=== PATIENT | male | born 1965 | race Caucasian/White ===

== ENCOUNTER → 2023-12-27 | Day surgery (SDC) | payer BC ==
[~2023-12-27] MED LIST: LIDOCAINE 1% INJ 10MG/ML (20 ML MDV) ONE; PROPOFOL 10 MG/ML 20 ML VIAL IV ONE
[2023-12-27 08:48] VITALS: TEMP 97.4
[2023-12-27] MEDS: IV FLUID CONTINUATION 1,000 ML IV ONE (08:54)
[2023-12-27] MEDS: LIDOCAINE 1% (10MG/ML) FOR IV START INTRADERMA PRN (09:02)
[2023-12-27] MEDS: LACTATED RINGERS 1,000 ML IV SCH (09:03)
--- NOTE | 2023-12-27 09:35 | P.GSHP ---
History of Present Illness H&P Date: 12/27/23 Chief Complaint: Colon cancer screening 58 male here for colonoscopy. Last colonoscopy 10 years ago. That was normal. No bowel complaints. No family history of colon cancer. Past Medical History Past Medical History: GERD/Reflux, Hyperlipidemia, Hypertension Additional Past Medical History / Comment(s): mild arthritis, History of Any Multi-Drug Resistant Organisms: None Reported Past Surgical History: Orthopedic Surgery Additional Past Surgical History / Comment(s): colonoscopy, meniscus surgery Past Anesthesia/Blood Transfusion Reactions: No Reported Reaction Smoking Status: Never smoker - Past Family History Mother Family Medical History: Congestive Heart Failure (CHF) Father Additional Family Medical History / Comment(s): valve issues Medications and Allergies Home Medications Medication Instructions Recorded Confirmed Type Ibuprofen [Advil] 600 mg PO DIRECTED PRN 12/23/23 12/27/23 History Pravastatin Sodium [Pravachol] 80 mg PO DAILY 12/23/23 12/27/23 History Zolpidem Tartrate [Ambien] 10 mg PO HS 12/23/23 12/27/23 History lisinopriL [Lisinopril] 10 mg PO DAILY 12/23/23 12/27/23 History Allergies Allergy/AdvReac Type Severity Reaction Status Date / Time No Known Allergies Allergy Verified 12/27/23 08:49 Surgical - Exam Vital Signs Temp Pulse Resp BP Pulse Ox 97.4 F L 91 16 136/96 96 12/27/23 08:47 12/27/23 08:47 12/27/23 08:47 12/27/23 08:47 12/27/23 08:47 Physical exam: General: Well-developed, well-nourished HEENT: Normocephalic, sclerae nonicteric Abdomen: Nontender, nondistended Extremities: No edema Neuro: Alert and oriented Assessment and Plan (1) Colon cancer screening Narrative/Plan: Will proceed with colonoscopy at this time. Current Visit: Yes Status: Acute Code(s): Z12.11 - ENCOUNTER FOR SCREENING FOR MALIGNANT NEOPLASM OF COLON SNOMED Code(s): 825348394
--- NOTE | 2023-12-27 09:47 | P.PCN ---
Date of Procedure: 12/27/23 Procedure(s) Performed: PREOPERATIVE DIAGNOSIS: Colon cancer screening POSTOPERATIVE DIAGNOSIS: Descending colon polyp, diverticulosis PROCEDURE: Colonoscopy with snare polypectomy ANESTHESIA: MAC SURGEON: Reese Yeboah M.D. SPECIMENS: Polyp ENDOSCOPIC PROCEDURE: The patient was placed on the endoscopy table in the left decubitus position. The Olympus colonoscope was inserted into the anus and passed under direct visualization to the base of the cecum. The appendiceal orifice was visualized. From that point the scope was slowly withdrawn inspecting all surfaces carefully. There were no neoplastic inflammatory or polypoid lesions throughout the cecum, ascending, and transverse colon. In the descending colon a small polyp was seen and removed using the snare with cautery technique. The remainder of the descending sigmoid and rectum appeared normal. The patient had mild scattered diverticulosis. Digital rectal examination was normal. The patient was taken to the recovery room in stable condition per anesthesia guidelines. RECOMMENDATIONS: Await biopsy results. Anticipate repeat colonoscopy 5 to 7 years. Will contact patient with timing.
[2023-12-27 10:08] VITALS: BP 121/89; PULSE 70; RESP 12
== END ==
LOC: ORWHC2ENDO 08:14
PROVIDERS: ATTEND Surgery
DX: Z12.11 Encounter for screening for malignant neoplasm of colon (principal); D12.4 Benign neoplasm of descending colon; K57.30 Diverticulosis of large intestine without perforation or abscess without bleeding; E78.5 Hyperlipidemia, unspecified; I10 Essential (primary) hypertension; K21.9 Gastro-esophageal reflux disease without esophagitis; Z79.899 Other long term (current) drug therapy
CPT/HCPCS: 88305; 45385; J2001; J2704